=== PATIENT | male | born 1925 | race Caucasian/White ===

== ENCOUNTER 2016-05-18 17:14 | Inpatient (IN) | payer MEDICARE, BC ==
[2016-05-18 18:44] LABS: Basophils # (A) 0.1 k/uL (0-0.2); Basophils % (A) 1 %; CH 33.5; CHCM 34.1; Eosinophils # (A) 0.4 k/uL (0-0.7); Eosinophils % (A) 4 %; HCT 38.9 % (39.0-53.0); HDW 2.77; HGB 13.1 gm/dL (13.0-17.5); Luc % (Auto) 2; Lymphocytes # (A) 1.3 k/uL (1.0-4.8); Lymphocytes % (A) 14 %; MCH 33.2 pg (25.0-35.0); MCHC 33.7 g/dL (31.0-37.0); MCV 98.6 fL (80.0-100.0); Mean Platelet Volume 7.5; Monocytes # (A) 0.4 k/uL (0-1.0); Monocytes % (A) 4 %; Neutrophils # (A) 7.1 k/uL (1.3-7.7); Neutrophils % (A) 75 %; RBC 3.95 m/uL (4.30-5.90); RDW 12.8 % (11.5-15.5); WBC 9.5 k/uL (3.8-10.6); WBC (Perox) 9.99
[2016-05-18 18:52] LABS: Appearance,Urine Turbid (Clear); Bacteria,Urine Many /hpf; Bilirubin,Urine Negative (Negative); Glucose,Urine (UA) Negative (Negative); Ketones,Urine Negative (Negative); Leukocyte Esterase,Urine Large (Negative); Nitrite,Urine Positive (Negative); PH, Urine 6.5 (5.0-8.0); Particle Count 22996; Protein,Urine 1+ (Negative); RBC,Urine >182 /hpf (0-5); Specific Gravity,Urine 1.016 (1.001-1.035); UA Billing (MACRO vs. MICRO) MICRO; Urobilinogen,Urine <2.0 mg/dL (<2.0); WBC,Urine >182 /hpf (0-5)
[2016-05-18 18:54] LABS: ALT 20 U/L (21-72); AST 14 U/L (17-59); Alkaline Phosphatase 88 U/L (38-126); Anion Gap 10 mmol/L; Blood Urea Nitrogen 24 mg/dL (9-20); Calcium 8.7 mg/dL (8.4-10.2); Carbon Dioxide 25 mmol/L (22-30); Chloride 107 mmol/L (98-107); Glucose 149 mg/dL (74-99); Non-African American GFR(MDRD) >60 (>60 ml/min/1.73 sqM); Potassium 3.9 mmol/L (3.5-5.1); Sodium 142 mmol/L (137-145); Total Bilirubin 0.6 mg/dL (0.2-1.3); Total Protein 6.3 g/dL (6.3-8.2)
--- NOTE | 2016-05-18 19:11 | CT ---
EXAMINATION TYPE: CT abdomen pelvis wo con DATE OF EXAM: 05/18/2016 6:57 PM COMPARISON: NONE HISTORY: Patient poor historian CT DLP: 1287 mGycm Automated exposure control for dose reduction was used. TECHNIQUE: Helical acquisition of images was performed from the lung bases through the pelvis. FINDINGS: There are patchy pneumonic airspace infiltrates in the right lower lobe and to a lesser extent the le ft lower lobe. There is no definite pleural effusion. Heart size is normal. There is no pericardial e ffusion. There are 2 1 cm calcified gallstones. Bile ducts are not dilated. There is no evidence of a pancreat ic mass. Spleen appears normal. There is some thickening of the right adrenal gland probably due to h yperplasia. This is also present on the left side. Kidneys have normal size without evidence of hydronephrosis. There is no retroperitoneal adenopathy. Abdominal aorta is atheromatous. There is an umbilical hernia that measures 3 cm and contains omental fat. There is no sign of a bowel obstruction. Bladder is almost empty. There is no pelvic mass. Ther e is no ascites. 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 There are spondylotic change s in the lumbar spine. Abdominal aorta shows atheromatous change. There is no evidence of an aneurysm . There is lumbar spinal stenosis at L2-3 L3-4 L4-5 levels. IMPRESSION: CALCIFIED GALLSTONES. NO DILATED DUCTS. BILATERAL LOWER LOBE PNEUMONIC INFILTRATES AND WORSE ON THE R IGHT SIDE CONSISTENT WITH PNEUMONIA. UMBILICAL HERNIA. MULTILEVEL LUMBAR BONY SPINAL STENOSIS.
[2016-05-18] MEDS ORDERED: CEFEPIME 2 GM in SODIUM CHLORIDE 0.9% 50 ML IVPB STA (19:25)
[2016-05-18] MEDS ORDERED: IV VANCOMYCIN PER PHARMACY 1 EACH MISC MISCELLANE PRN (19:25)
--- NOTE | 2016-05-18 19:25 | ED ---
General Adult HPI - General Chief complaint: Urogenital Stated complaint: Hematuria Time Seen by Provider: 05/18/16 17:24 Source: EMS Mode of arrival: EMS Limitations: physical limitation - History of Present Illness Initial comments: 60-year-old male not on anticoagulants presented for evaluation of hematuria noticed today. He is a resident at [facility] and staff states that they noticed blood in his briefs this morning. Later in the day they noticed that he had gross hematuria when urinating and decided he needed to be evaluated in the ED. The patient's baseline mental status and O 1 but they state today is a good day and he is much more social and usual without agitation. 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 The patient and staff stated this pain is no worse than usual. - Related Data Home Medications Medication Instructions Recorded Confirmed Herreid-3 Fatty Acids/Fish Oil [Fish 1 cap PO BID@0800,199909/06/14 05/18/16 Oil 1,000 mg Softgel] Sertraline [Zoloft] 50 mg PO DAILY@0809/06/14 05/18/16 Spironolactone [Aldactone] 25 mg PO DAILY@0800 09/06/14 05/18/16 ALPRAZolam [Xanax] 0.5 mg PO BID 05/18/16 05/18/16 Betamethasone Dipropionate 1 applic TOPICAL DAILY PRN 05/18/16 05/18/16 [Diprolene 0.05% Lotion] Cholecalciferol [Vitamin D3] 2,000 unit PO BID@08,199905/18/16 05/18/16 Clotrimazole Cream [Lotrimin Cream] 1 applic TOPICAL BID PRN 05/18/16 05/18/16 Docusate [Colace] 100 mg PO DAILY@0800 05/18/16 05/18/16 Folic Acid/Multivit-Min/Lutein 1 tab PO DAILY@0800 05/18/16 05/18/16 [Therapeutic-M Tablet] Menthol/Zinc Oxide [Calmoseptine 1 applic TOPICAL DAILY PRN 05/18/16 05/18/16 Ointment] Naproxen [Naprosyn] 500 mg PO BID@0800,199905/18/16 05/18/16 Nystatin 100,000 Unit/gm Powd 1 applic TOPICAL BID PRN 05/18/16 05/18/16 [Mycostatin Powder] guaiFENesin SYRUP 100MG/5ML 200 mg PO Q8H PRN 05/18/16 05/18/16 [Robitussin] traMADol-ACETAMINOP 37.5-325MG 2 tab PO Q6HR PRN 05/18/16 05/18/16 [Ultracet] Allergies Allergy/AdvReac Type Severity Reaction Status Date / Time No Known Allergies Allergy Verified 05/18/16 17:33 Review of Systems ROS Statement: Those systems with pertinent positive or pertinent negative responses have been documented in the HPI. ROS Other: All systems not noted in ROS Statement are negative. Past Medical History Past Medical History: Atrial Fibrillation, Dementia, Hypertension Additional Past Medical History / Comment(s): bone spurs, GALL STONES, edema, vitamin D deficiency, lumbago, History of Any Multi-Drug Resistant Organisms: None Reported Past Surgical History: No Surgical Hx Reported Past Anesthesia/Blood Transfusion Reactions: No Reported Reaction Past Psychological History: No Psychological Hx Reported Smoking Status: Former smoker Past Drug Use History: None Reported General Exam Limitations: physical limitation Course Vital Signs 05/18/16 17:20 Temperature 96.9 F L Pulse Rate 69 Respiratory 16 Rate Blood Pressure 153/65 O2 Sat by Pulse 97 Oximetry EKG Findings - EKG Comments: EKG Findings:: Normal sinus rhythm with LAFB, ventricular rate 65 bpm, COLLEEN 170, QRS 114, QT/QTC 418/434. Medical Decision Making - Medical Decision Making 89-year-old male presented for evaluation of gross hematuria noticed by staff at [facility]. His baseline mental status exam on times one and faculty state that he is at his normal baseline. Upon presentation the patient appears to be in no distress and vitals are within normal limits. Labs sent and were significant for urinary tract infection with significant hematuria. CT abdomen was also obtained which showed bibasilar pneumonia worse on the right compared to the left. Given his 2 sources of infection patient was started on IV Vanco and cefepime and admission process started. Dr. Bnoilla accepted the admission with request for consult with urology. Admission order placed and bed request submitted. - Lab Data Result diagrams: 05/18/16 18:10 05/18/16 18:10 Lab Results 0305/18/16 05/18/16 Range/Units 18:10 18:10 18:10 WBC 9.5 (3.8-10.6) k/uL RBC 3.95 L (4.30-5.90) m/uL Hgb 13.1 (13.0-17.5) gm/dL Hct 38.9 L (39.0-53.0) % MCV 98.6 (80.0-100.0) fL MCH 33.2 (25.0-35.0) pg MCHC 33.7 (31.0-37.0) g/dL RDW 12.8 (11.5-15.5) % Plt Count 206 (150-450) k/uL Neutrophils % 75 % Lymphocytes % 14 % Monocytes % 4 % Eosinophils % 4 % Basophils % 1 % Neutrophils # 7.1 (1.3-7.7) k/uL Lymphocytes # 1.3 (1.0-4.8) k/uL Monocytes # 0.4 (0-1.0) k/uL Eosinophils # 0.4 (0-0.7) k/uL Basophils # 0.1 (0-0.2) k/uL Sodium 142 (137-145) mmol/L Potassium 3.9 (3.5-5.1) mmol/L Chloride 107 (98-107) mmol/L Carbon Dioxide 25 (22-30) mmol/L Anion Gap 10 mmol/L BUN 24 H (9-20) mg/dL Creatinine 0.99 (0.66-1.25) mg/dL Est GFR (MDRD) Af Amer >60 (>60 ml/min/1.73 sqM) Est GFR (MDRD) Non-Af >60 (>60 ml/min/1.73 sqM) Glucose 149 H (74-99) mg/dL Calcium 8.7 (8.4-10.2) mg/dL Total Bilirubin 0.6 (0.2-1.3) mg/dL AST 14 L (17-59) U/L ALT 20 L (21-72) U/L Alkaline Phosphatase 88 (38-126) U/L Troponin I (0.000-0.034) ng/mL Total Protein 6.3 (6.3-8.2) g/dL Albumin 3.4 L (3.5-5.0) g/dL Lipase 102 (23-300) U/L Urine Color Yellow Urine Appearance Turbid (Clear) Urine pH 6.5 (5.0-8.0) Ur Specific [place] 1.016 (1.001-1.035) Urine Protein 1+ H (Negative) Urine Glucose (UA) Negative (Negative) Urine Ketones Negative (Negative) Urine Blood Large H (Negative) Urine Nitrite Positive (Negative) Urine Bilirubin Negative (Negative) Urine Urobilinogen <2.0 (<2.0) mg/dL Ur Leukocyte Esterase Large H (Negative) Urine RBC >182 H (0-5) /hpf Urine WBC >182 H (0-5) /hpf Urine WBC Clumps Moderate H (None) /hpf Urine Bacteria Many H (None) /hpf 05/18/16 Range/Units 18:10 WBC (3.8-10.6) k/uL RBC (4.30-5.90) m/uL Hgb (13.0-17.5) gm/dL Hct (39.0-53.0) % MCV (80.0-100.0) fL MCH (25.0-35.0) pg MCHC (31.0-37.0) g/dL RDW (11.5-15.5) % Plt Count (150-450) k/uL Neutrophils % % Lymphocytes % % Monocytes % % Eosinophils % % Basophils % % Neutrophils # (1.3-7.7) k/uL Lymphocytes # (1.0-4.8) k/uL Monocytes # (0-1.0) k/uL Eosinophils # (0-0.7) k/uL Basophils # (0-0.2) k/uL Sodium (137-145) mmol/L Potassium (3.5-5.1) mmol/L Chloride (98-107) mmol/L Carbon Dioxide (22-30) mmol/L Anion Gap mmol/L BUN (9-20) mg/dL Creatinine (0.66-1.25) mg/dL Est GFR (MDRD) Af Amer (>60 ml/min/1.73 sqM) Est GFR (MDRD) Non-Af (>60 ml/min/1.73 sqM) Glucose (74-99) mg/dL Calcium (8.4-10.2) mg/dL Total Bilirubin (0.2-1.3) mg/dL AST (17-59) U/L ALT (21-72) U/L Alkaline Phosphatase (38-126) U/L Troponin I <0.012 (0.000-0.034) ng/mL Total Protein (6.3-8.2) g/dL Albumin (3.5-5.0) g/dL Lipase (23-300) U/L Urine Color Urine Appearance (Clear) Urine pH (5.0-8.0) Ur Specific [place] (1.001-1.035) Urine Protein (Negative) Urine Glucose (UA) (Negative) Urine Ketones (Negative) Urine Blood (Negative) Urine Nitrite (Negative) Urine Bilirubin (Negative) Urine Urobilinogen (<2.0) mg/dL Ur Leukocyte Esterase (Negative) Urine RBC (0-5) /hpf Urine WBC (0-5) /hpf Urine WBC Clumps (None) /hpf Urine Bacteria (None) /hpf Disposition Clinical Impression: HCAP (healthcare-associated pneumonia), Urinary tract infection Disposition: ADMITTED IP TO THIS [facility] Decision to Admit Reason: Admit from EC Decision Date: 05/18/16 Decision Time: 19:36
[2016-05-18] MEDS ORDERED: VANCOMYCIN 1,500 MG in SODIUM CHLORIDE 0.9% 250 ML IVPB STA (19:32)
[2016-05-18] MEDS ORDERED: NALOXONE 0.4 MG/ML 1 ML VIAL IV PRN (19:37)
[2016-05-18] MEDS ORDERED: ONDANSETRON 4 MG/2 ML VIAL IVP PRN (19:37)
[2016-05-18] MEDS ORDERED: MORPHINE SULFATE 4 MG/ML SYRINGE IV PRN (19:37)
[2016-05-18] MEDS ORDERED: NYSTATIN 100,000 UNIT/GM POWD 15 GM TOPICAL PRN (19:39)
[2016-05-18 20:44] VITALS: BMI 34.6
[2016-05-18] MEDS: SODIUM CHLORIDE 0.9% 1,000 ML IV SCH (21:21)
[2016-05-18] MEDS: ALPRAZolam 0.5 MG TAB PO SCH (21:28)
[2016-05-19] MEDS: KETOROLAC 30 MG/ML 1 ML VIAL IVP PRN ×2 (04:42→14:16)
[2016-05-19] MEDS: SODIUM CHLORIDE 0.9% 1,000 ML IV SCH ×2 (07:22→17:11)
[2016-05-19] MEDS: SERTRALINE 50 MG TAB PO SCH (08:32)
[2016-05-19] MEDS: SPIRONOLACTONE 25 MG TAB PO SCH (08:32)
[2016-05-19] MEDS: ALPRAZolam 0.5 MG TAB PO SCH ×2 (08:32→21:43)
[2016-05-19 08:41] LABS: Basophils % (A) 1 %; CH 33.2; CHCM 33.5; Eosinophils # (A) 0.5 k/uL (0-0.7); Eosinophils % (A) 5 %; HDW 2.76; Luc # (Auto) 0.17; Luc % (Auto) 2; Lymphocytes # (A) 1.4 k/uL (1.0-4.8); Lymphocytes % (A) 16 %; MCH 32.3 pg (25.0-35.0); MCHC 32.4 g/dL (31.0-37.0); MCV 99.6 fL (80.0-100.0); Mean Platelet Volume 6.6; Monocytes # (A) 0.3 k/uL (0-1.0); Monocytes % (A) 4 %; Neutrophils # (A) 6.1 k/uL (1.3-7.7); Neutrophils % (A) 72 %; RBC 4.02 m/uL (4.30-5.90); RDW 12.9 % (11.5-15.5); WBC 8.4 k/uL (3.8-10.6); WBC (Perox) 9.13
[2016-05-19 09:06] LABS: Chloride 110 mmol/L (98-107); Glucose 82 mg/dL (74-99); Potassium 4.2 mmol/L (3.5-5.1); Total Protein 6.5 g/dL (6.3-8.2)
[2016-05-19 09:07] LABS: ALT 20 U/L (21-72); AST 16 U/L (17-59); Alkaline Phosphatase 86 U/L (38-126); Anion Gap 10 mmol/L; Blood Urea Nitrogen 22 mg/dL (9-20); Calcium 8.9 mg/dL (8.4-10.2); Carbon Dioxide 23 mmol/L (22-30); Non-African American GFR(MDRD) >60 (>60 ml/min/1.73 sqM); Sodium 143 mmol/L (137-145); Total Bilirubin 0.7 mg/dL (0.2-1.3)
[2016-05-19] MEDS ORDERED: VANCOMYCIN 1,500 MG in SODIUM CHLORIDE 0.9% 250 ML IVPB SCH (14:00)
[2016-05-19 20:22] LABS: Appearance,Urine Cloudy (Clear); Bacteria,Urine Rare /hpf; Bilirubin,Urine Negative (Negative); Glucose,Urine (UA) Negative (Negative); Ketones,Urine Negative (Negative); Leukocyte Esterase,Urine Large (Negative); Mucus,Urine Rare /hpf; Nitrite,Urine Negative (Negative); PH, Urine 5.5 (5.0-8.0); Particle Count 11347; Protein,Urine 1+ (Negative); RBC,Urine 129 /hpf (0-5); Specific Gravity,Urine 1.018 (1.001-1.035); UA Billing (MACRO vs. MICRO) MICRO; Urobilinogen,Urine <2.0 mg/dL (<2.0); WBC,Urine 130 /hpf (0-5)
[2016-05-20] MEDS: SODIUM CHLORIDE 0.9% 1,000 ML IV SCH ×3 (04:12→22:39)
[2016-05-20] MEDS ORDERED: VANCOMYCIN 1,750 MG in SODIUM CHLORIDE 0.9% 250 ML IVPB SCH (06:00)
[2016-05-20] MEDS: SERTRALINE 50 MG TAB PO SCH (07:56)
[2016-05-20] MEDS: ALPRAZolam 0.5 MG TAB PO SCH ×2 (07:56→20:36)
[2016-05-20] MEDS: SPIRONOLACTONE 25 MG TAB PO SCH (07:56)
--- NOTE | 2016-05-20 08:36 | HP ---
DATE OF ADMISSION: 05/18/2016 PRESENTING COMPLAINT: Hematuria. HISTORY OF PRESENTING COMPLAINT: This is an 89-year-old patient who is a poor historian because of dementia noticed that the place where he lives, ( ) in his underwear, hence he was sent in. Patient denies any symptoms like because history he is a poor historian. The patient's chronic stable medical conditions include atrial fibrillation, dementia, hypertension, vitamin D deficiency. REVIEW OF SYSTEMS: Constitutional: Tired. HEENT: None. RESPIRATORY: None. CARDIOVASCULAR: No chest pain. GASTROINTESTINAL: None. GENITOURINARY: As above. MUSCULOSKELETAL: Pain in the joints. Dermatological: None. HEMATOLOGIC: None. LYMPHATICS: None. PSYCHIATRY: Very forgetful. NEUROLOGICAL: Chronic weakness of the right side. PAST MEDICAL HISTORY: Atrial fibrillation, dementia, hypertension, and bone spur, gallstones, vitamin D deficiency. PAST SURGICAL HISTORY: None. SOCIAL HISTORY: Patient is a Resident of [facility]. Did smoke in the past. No alcohol. FAMILY HISTORY: Patient cannot remember. HOME MEDICATIONS: 1. Nystatin powder topical b.i.d. p.r.n. 2. Calmoseptine ointment topical daily p.r.n. 3. Diprolene 0.05% one topical daily p.r.n. 4. Robitussin 200 mg q.8 p.r.n. 5. Lotrimin topical b.i.d. p.r.n. 6. Ultracet 2 tablets p.o. q.6 p.r.n. 7. Therapeutic-M 1 tablet p.o. daily. 8. Xanax 0.5 p.o. b.i.d. 9. Colace 100 mg p.o. daily. 10. Vitamin D3, 2000 units p.o. b.i.d. 11. Naproxen 500 mg p.o. b.i.d. 12. Aldactone 25 mg p.o. daily. 13. Zoloft 50 mg p.o. daily. 14. Fish oil 1000 mg 1 capsule p.o. b.i.d. ALLERGIES: None. On examination vital signs on presentation: Temperature 97.9, pulse 82, respirations 18, blood pressure 140/64, pulse ox 95% on room air. GENERAL APPEARANCE: Sitting up, not in distress. EYES: Pupils equal. Conjunctivae pale. HEENT: Oral cavity with dry mucous membrane. NECK: JVD not raised. Mass not palpable. RESPIRATORY: Effort normal. LUNGS: Slightly decreased breath sounds. CARDIOVASCULAR: First and second sounds normal. No edema. ABDOMEN: Soft, nontender. Liver and spleen not palpable. LYMPHATIC: No lymph node palpable in neck or axillae. PSYCHIATRY: Knows her name and knows that she may be in the hospital, but cannot answer more detailed questions. NEUROLOGICAL: Pupils equal. ( ) does move all 4 limbs. Weakness of the right leg is 3/5, right arm power is 4/5. INVESTIGATIONS: White count 8.4, hemoglobin 13, potassium 4.2. UA positive for leukocyte esterase, WBC. ASSESSMENT: 1. Acute hematuria could be from acute severe urinary tract infection at the same time other underlying malignancy and other causes of the bladder should be ruled out. 2. Persistent atrial fibrillation. 3. Alzheimer's dementia, late onset type. 4. Essential hypertension. 5. Vitamin D deficiency. PLAN: Home medications are resumed. Urine culture will be sent off. Urology was consulted. We will put the patient on ceftriaxone and ensure urine cultures are being done. Copy to visiting physician Dr. Leslie.
--- NOTE | 2016-05-20 21:04 | PN ---
DATE OF SERVICE: 05/20/2016 PRESENTING COMPLAINT: Hematuria. INTERVAL HISTORY: This patient presented with hematuria, could be from simply infection, has been on antibiotics. Patient himself is a poor historian. Did eat his meals. Nurse is checking to see if he has any more bleeding. Awaiting input from Neurology. Review of systems attempted. Current medications include IV ceftriaxone. On examination, temperature 97, pulse 56, respiration 20, blood pressure 115/61, pulse ox 94% on room air. GENERAL APPEARANCE: Lying in bed, comfortable. EYES: Pupils equal. Conjunctivae normal. NECK: JVD not raised. Mass not palpable. RESPIRATORY: Lungs have slightly decreased breath sounds. CARDIOVASCULAR: First and second sounds normal. No edema. ABDOMEN: Soft, nontender. Liver and spleen not palpable. PSYCHIATRY: Patient able to answer simple questions. INVESTIGATIONS: Urine cultures pending. ASSESSMENT: 1. Acute hematuria, present at admission, could be from urinary tract infection. If antibiotics clear it, then no need for further workup, but at the same time, malignancy remains in the differential at least. 2. Persistent atrial fibrillation. 3. Alzheimer dementia, late onset type. 4. Essential hypertension. 5. Vitamin D deficiency. PLAN: Patient will be sat up in a chair. Await input from Neurology. Cultures are pending. Continue antibiotics.
[2016-05-21] MEDS: ALPRAZolam 0.5 MG TAB PO SCH ×2 (09:52→20:02)
[2016-05-21] MEDS: SERTRALINE 50 MG TAB PO SCH (09:52)
[2016-05-21] MEDS: SPIRONOLACTONE 25 MG TAB PO SCH (09:52)
[2016-05-21] MEDS: SODIUM CHLORIDE 0.9% 1,000 ML IV SCH ×2 (12:51→16:55)
[2016-05-21 22:50] VITALS: RESP 18
[2016-05-22] MEDS: KETOROLAC 30 MG/ML 1 ML VIAL IVP PRN ×2 (00:27→08:25)
[2016-05-22] MEDS ORDERED: CEFUROXIME 250 MG TAB PO SCH (08:00)
[2016-05-22] MEDS: SERTRALINE 50 MG TAB PO SCH (08:20)
[2016-05-22] MEDS: SPIRONOLACTONE 25 MG TAB PO SCH (08:20)
[2016-05-22 09:20] VITALS: BP 138/75; PULSE 68; TEMP 96.2
--- NOTE | 2016-05-22 09:46 | PN ---
DATE OF SERVICE: 05/21/2016 PRESENTING COMPLAINT: Hematuria. INTERVAL HISTORY: Patient presented with hematuria, could be infection, antibiotics, tolerating a diet, comfortable. Patient is at a baseline of Mehreen lift at the place he lives. Review of systems done for constitutional, cardiovascular, GI, pulmonary; relevant findings as above. Current medications are reviewed that include IV ceftriaxone. On examination, temperature 97.1, pulse 71, respirations 21, blood pressure 129/72, pulse ox 92% on room air. GENERAL APPEARANCE: Lying in bed, comfortable. EYES: Pupils equal. Conjunctivae normal. NECK: JVD not raised. Mass not palpable. Respiratory effort normal. LUNGS: Decreased breath sounds. CARDIOVASCULAR: First and second sounds normal. No edema. ABDOMEN: Soft, nontender. Liver and spleen not palpable. PSYCHIATRY: Answering simple questions. INVESTIGATIONS: Urine cultures have come back negative. Please note that this was on antibiotics. ASSESSMENT: 1. Acute hematuria present at admission, likely from urinary tract infection, doing well. 2. Persistent atrial fibrillation. 3. Alzheimer's dementia, late onset type. 4. Essential hypertension. 5. Vitamin D deficiency. 6. Medical debility, patient uses a Mehreen lift as a baseline. PLAN: Will switch over patient to oral antibiotics and discharge patient back to [facility] tomorrow.
[2016-05-22] MEDS: ALPRAZolam 0.5 MG TAB PO SCH (10:05)
--- NOTE | 2016-05-24 07:23 | DS ---
DATE OF ADMISSION: 05/18/2016 DATE OF DISCHARGE: 05/22/2016 FINAL DIAGNOSES: 1. Acute hematuria, likely from the urinary tract infection. 2. Persistent atrial fibrillation. 3. Alzheimer's dementia, late onset type. 4. Essential hypertension. 5. Vitamin D deficiency. 6. Medical debility. Patient uses a Mehreen lift at the baseline. HOSPITAL COURSE: This patient presented with hematuria. Given antibiotics to which he responded well. Urine cultures remain negative. Hematuria completely resolved. CONSULTATION: Urology. On examination, lungs are clear. CARDIOVASCULAR: First and second sounds normal. DISCHARGE MEDICATIONS: 1. Fish oil 1000 mg p.o. b.i.d. 2. Zoloft 50 mg p.o. daily. 3. Aldactone 25 mg p.o. daily. 4. Xanax 0.5 p.o. daily. 5. Diprolene 0.05% lotion topical daily p.r.n. 6. Vitamin D3, 2000 units p.o. b.i.d. 7. Lotrimin cream topical b.i.d. p.r.n. 8. Therapeutic M 1 tablet p.o. daily. 9. Calmoseptine topical daily p.r.n. 10. Mycostatin topical b.i.d. p.r.n. 11. Ultracet 37.5/325 two tablets p.o. q.6 p.r.n. 12. Ceftin 250 mg q.12, ten tablets. 13. Naproxen 250 mg p.o. b.i.d., 14 tablets. DISPOSITION: To [facility] To follow up with Dr. Leslie in one week.
== END 2016-05-22 15:27 | disposition home or self-care (01) | DRG 690 ==
LOC: EEVIPCON 17:14 → EC 17:14 → 4MS4W 19:37
PROVIDERS: ADMIT Hospitalist; ATTEND Hospitalist
DX: N39.0 Urinary tract infection, site not specified (principal); I48.1 Persistent atrial fibrillation; G30.1 Alzheimer's disease with late onset; F02.80 Dementia in other diseases classified elsewhere, unspecified severity, without behavioral disturbance, psychotic disturbance, mood disturbance, and anxiety; R31.0 Gross hematuria; E55.9 Vitamin D deficiency, unspecified; I10 Essential (primary) hypertension; M77.32 Calcaneal spur, left foot; M77.31 Calcaneal spur, right foot; G89.29 Other chronic pain; Z87.891 Personal history of nicotine dependence; Z79.1 Long term (current) use of non-steroidal anti-inflammatories (NSAID); Z79.899 Other long term (current) drug therapy
CPT/HCPCS: 36415; 74176; 80053; 81001; 83690; 83735; 84100; 84484; 85025; 87086; 93005; 96365; 99285

== ENCOUNTER 2016-06-06 15:39 | Inpatient (IN) | payer MEDICARE, BC ==
[2016-06-06] MEDS ORDERED: KETOROLAC 60 MG/2 ML VIAL IVP STA (15:51)
[2016-06-06] MEDS ORDERED: ACETAMINOPHEN TAB 500 MG TAB PO STA (15:52)
--- NOTE | 2016-06-06 15:55 | ED ---
General Adult HPI - General Source: RN notes reviewed <Gary Ramirez - Last Filed: 06/06/16 16:44> <Julián Doan - Last Filed: 06/06/16 18:53> - General Stated complaint: pneumonia Time Seen by Provider: 06/06/16 15:39 - History of Present Illness Initial comments: This is an 89-year-old male who presents emergency Department with a recent history of pneumonia. According to staff at the facility they called because he more difficult to breathing and coughing quite a bit. Patient denies any difficulty breathing but he also is significantly demented. Patient does not know the date or the month or the time of the year. Patient seems to believe he is here because he has a bone spur on the back of his left heel and he believes he is here to have that removed. No further history is available this time because the patient is not accurate and giving history and EMS only knows that the staff called them because he recently was diagnosed with pneumonia and his breathing is gotten no better. Patient denies any pain aside from the left heel where he complains of a bone spur. Patient denies headache patient denies any chest pain or palpitations patient denies abdominal pain patient denies nausea vomiting diarrhea. (Gary Ramirez) - Related Data Home Medications Medication Instructions Recorded Confirmed Wayne-3 Fatty Acids/Fish Oil [Fish 1 cap PO BID@08,199909/06/14 06/06/16 Oil 1,000 mg Softgel] Sertraline [Zoloft] 50 mg PO DAILY@79909/06/14 06/06/16 Spironolactone [Aldactone] 25 mg PO DAILY@79909/06/14 06/06/16 ALPRAZolam [Xanax] 0.5 mg PO BID PRN 05/18/16 06/06/16 Cholecalciferol [Vitamin D3] 2,000 unit PO BID@08,199905/18/16 06/06/16 Clotrimazole Cream [Lotrimin Cream] 1 applic TOPICAL BID PRN 05/18/16 06/06/16 Menthol/Zinc Oxide [Calmoseptine 1 applic TOPICAL DAILY PRN 05/18/16 06/06/16 Ointment] Nystatin 100,000 Unit/gm Powd 1 applic TOPICAL BID PRN 05/18/16 06/06/16 [Mycostatin Powder] traMADol-ACETAMINOP 37.5-325MG 2 tab PO Q6HR PRN 05/18/16 06/06/16 [Ultracet] Betamethasone Dipropionate 1 applic TOPICAL BID PRN 06/06/16 06/06/16 [Diprolene AF 0.05% Cream] Naproxen [Naprosyn] 500 mg PO Q12HR 06/06/16 06/06/16 Q Tussin 100/5ml 5 ml PO DIRECTED PRN 06/06/16 06/06/16 Allergies Allergy/AdvReac Type Severity Reaction Status Date / Time No Known Allergies Allergy Verified 06/06/16 16:06 Review of Systems ROS Other: All systems not noted in ROS Statement are negative. <Gary Ramirez - Last Filed: 06/06/16 16:44> ROS Other: All systems not noted in ROS Statement are negative. <Julián Doan - Last Filed: 06/06/16 18:53> ROS Statement: Those systems with pertinent positive or pertinent negative responses have been documented in the HPI. Past Medical History Past Medical History: Atrial Fibrillation, Dementia, Hypertension Additional Past Medical History / Comment(s): bone spurs, GALL STONES, edema, vitamin D deficiency, lumbago, History of Any Multi-Drug Resistant Organisms: None Reported Past Surgical History: No Surgical Hx Reported Past Anesthesia/Blood Transfusion Reactions: No Reported Reaction Past Psychological History: No Psychological Hx Reported Smoking Status: Former smoker Past Drug Use History: None Reported <Gary Ramirez - Last Filed: 06/06/16 16:44> General Exam <Gary Ramirez - Last Filed: 06/06/16 16:44> <Julián Doan - Last Filed: 06/06/16 18:53> - General Exam Comments Initial Comments: GENERAL: Patient is well-developed and well-nourished. Patient is nontoxic and well- hydrated and is in no acute distress. ENT: Neck is soft and supple. No significant lymphadenopathy is noted. Oropharynx is clear. Moist mucous membranes. Neck has full range of motion without eliciting any pain. EYES: The sclera were anicteric and conjunctiva were pink and moist. Extraocular movements were intact and pupils were equal round and reactive to light. Eyelids were unremarkable. PULMONARY: Unlabored respirations. Good breath sounds bilaterally. Patient has crackles bilaterally more on the left than the right. CARDIOVASCULAR: There is a regular rate and rhythm without any murmurs gallops or rubs. ABDOMEN: Soft and nontender with normal bowel sounds. No palpable organomegaly was noted. There is no palpable pulsatile mass. SKIN: Skin is clear with no lesions or rashes and otherwise unremarkable. NEUROLOGIC: Patient is alert and oriented 2. Cranial nerves II through XII are grossly intact. Motor and sensory are also intact. Normal speech, volume and content. Symmetrical smile. MUSCULOSKELETAL: Normal extremities with adequate strength and full range of motion. No lower extremity swelling or edema. No calf tenderness. LYMPHATICS: No significant lymphadenopathy is noted (Gary Ramirez) Course <Gary Ramirez - Last Filed: 06/06/16 16:44> <Julián Doan - Last Filed: 06/06/16 18:53> Vital Signs 06/06/16 06/06/16 06/06/16 15:49 16:11 16:41 Temperature 100.3 F H Pulse Rate 94 88 86 Respiratory 22 Rate Blood Pressure 151/65 137/68 136/68 O2 Sat by Pulse 91 L 93 L 95 Oximetry 06/06/16 06/06/16 06/06/16 17:00 18:00 18:47 Temperature 98.3 F Pulse Rate 84 97 97 Respiratory 18 20 20 Rate Blood Pressure 151/67 129/81 137/65 O2 Sat by Pulse 93 L 93 L 93 L Oximetry - Reevaluation(s) Reevaluation #1: 06/06/16 18:52 The patient was endorsed to me by Dr. Ramirez at her shift change. Patient will be admitted he does demonstrate pneumonia with a fever and dyspnea. (Julián Doan) Medical Decision Making - Lab Data Result diagrams: 06/06/16 16:00 <Gary Ramirez - Last Filed: 06/06/16 16:44> - Lab Data Result diagrams: 06/06/16 16:00 06/06/16 16:00 - Radiology Data Radiology results: report reviewed (I did review the x-ray report is evidence of right lower lobe infiltrate is worsening.), image reviewed <Julián Doan - Last Filed: 06/06/16 18:53> - Medical Decision Making EKG shows normal sinus rhythm at 90 bpm IA interval 266 QRS is 102 QT interval 346 QTC is 423. Patient's EKG shows no ST segment elevation or depression or T- wave abnormality she noted. Dr. Franki appiah taking over the care of this patient at 5 PM (Gary Ramirez) - Lab Data Lab Results 06/06/16 06/06/16 06/06/16 Range/Units 16:00 16:00 16:00 WBC 17.1 H (3.8-10.6) k/uL RBC 4.10 L (4.30-5.90) m/uL Hgb 13.7 (13.0-17.5) gm/dL Hct 41.0 (39.0-53.0) % MCV 100.0 (80.0-100.0) fL MCH 33.4 (25.0-35.0) pg MCHC 33.4 (31.0-37.0) g/dL RDW 13.3 (11.5-15.5) % Plt Count 217 (150-450) k/uL Neutrophils % 86 % Lymphocytes % 8 % Monocytes % 3 % Eosinophils % 2 % Basophils % 0 % Neutrophils # 14.7 H (1.3-7.7) k/uL Lymphocytes # 1.3 (1.0-4.8) k/uL Monocytes # 0.5 (0-1.0) k/uL Eosinophils # 0.4 (0-0.7) k/uL Basophils # 0.1 (0-0.2) k/uL PT (9.0-12.0) sec INR (<1.1) APTT (22.0-30.0) sec Sodium (137-145) mmol/L Potassium (3.5-5.1) mmol/L Chloride (98-107) mmol/L Carbon Dioxide (22-30) mmol/L Anion Gap mmol/L BUN (9-20) mg/dL Creatinine (0.66-1.25) mg/dL Est GFR (MDRD) Af Amer (>60 ml/min/1.73 sqM) Est GFR (MDRD) Non-Af (>60 ml/min/1.73 sqM) Glucose (74-99) mg/dL Plasma Lactic Acid Carlton 1.5 (0.7-2.0) mmol/L Calcium (8.4-10.2) mg/dL Magnesium (1.6-2.3) mg/dL Total Bilirubin (0.2-1.3) mg/dL AST (17-59) U/L ALT (21-72) U/L Alkaline Phosphatase (38-126) U/L Total Creatine Kinase 61 (55-170) U/L CK-MB (CK-2) 0.3 (0.0-2.4) ng/mL CK-MB (CK-2) Rel Index 0.5 Troponin I <0.012 (0.000-0.034) ng/mL NT-Pro-B Natriuret Pep pg/mL Total Protein (6.3-8.2) g/dL Albumin (3.5-5.0) g/dL 06/06/16 06/06/16 06/06/16 Range/Units 16:00 16:00 16:00 WBC (3.8-10.6) k/uL RBC (4.30-5.90) m/uL Hgb (13.0-17.5) gm/dL Hct (39.0-53.0) % MCV (80.0-100.0) fL MCH (25.0-35.0) pg MCHC (31.0-37.0) g/dL RDW (11.5-15.5) % Plt Count (150-450) k/uL Neutrophils % % Lymphocytes % % Monocytes % % Eosinophils % % Basophils % % Neutrophils # (1.3-7.7) k/uL Lymphocytes # (1.0-4.8) k/uL Monocytes # (0-1.0) k/uL Eosinophils # (0-0.7) k/uL Basophils # (0-0.2) k/uL PT 10.8 (9.0-12.0) sec INR 1.1 (<1.1) APTT 24.2 (22.0-30.0) sec Sodium 142 (137-145) mmol/L Potassium 4.0 (3.5-5.1) mmol/L Chloride 107 (98-107) mmol/L Carbon Dioxide 23 (22-30) mmol/L Anion Gap 12 mmol/L BUN 29 H (9-20) mg/dL Creatinine 1.08 (0.66-1.25) mg/dL Est GFR (MDRD) Af Amer >60 (>60 ml/min/1.73 sqM) Est GFR (MDRD) Non-Af >60 (>60 ml/min/1.73 sqM) Glucose 102 H (74-99) mg/dL Plasma Lactic Acid Carlton (0.7-2.0) mmol/L Calcium 8.9 (8.4-10.2) mg/dL Magnesium 1.8 (1.6-2.3) mg/dL Total Bilirubin 1.0 (0.2-1.3) mg/dL AST 28 (17-59) U/L ALT 25 (21-72) U/L Alkaline Phosphatase 87 (38-126) U/L Total Creatine Kinase (55-170) U/L CK-MB (CK-2) (0.0-2.4) ng/mL CK-MB (CK-2) Rel Index Troponin I (0.000-0.034) ng/mL NT-Pro-B Natriuret Pep 270 pg/mL Total Protein 7.1 (6.3-8.2) g/dL Albumin 3.8 (3.5-5.0) g/dL Disposition <Gary Ramirez - Last Filed: 06/06/16 16:44> <Julián Doan - Last Filed: 06/06/16 18:53> Clinical Impression: Right lower lobe pneumonia, Febrile illness, acute, Leukocytosis, Dyspnea Disposition: ADMITTED IP TO THIS HOSP Condition: Stable
[2016-06-06 16:28] LABS: Basophils # (A) 0.1 k/uL (0-0.2); Basophils % (A) 0 %; CHCM 33.2; Eosinophils # (A) 0.4 k/uL (0-0.7); Eosinophils % (A) 2 %; HDW 2.73; HGB 13.7 gm/dL (13.0-17.5); Luc # (Auto) 0.17; Luc % (Auto) 1; Lymphocytes # (A) 1.3 k/uL (1.0-4.8); Lymphocytes % (A) 8 %; MCH 33.4 pg (25.0-35.0); MCHC 33.4 g/dL (31.0-37.0); Mean Platelet Volume 6.8; Monocytes # (A) 0.5 k/uL (0-1.0); Monocytes % (A) 3 %; Neutrophils # (A) 14.7 k/uL (1.3-7.7); Neutrophils % (A) 86 %; RDW 13.3 % (11.5-15.5); WBC 17.1 k/uL (3.8-10.6); WBC (Perox) 17.18
[2016-06-06 16:40] LABS: INR 1.1 (<1.1); Partial Thromboplastin Time 24.2 sec (22.0-30.0); Prothrombin Time 10.8 sec (9.0-12.0)
[2016-06-06 16:41] LABS: ALT 25 U/L (21-72); AST 28 U/L (17-59); Alkaline Phosphatase 87 U/L (38-126); Anion Gap 12 mmol/L; Blood Urea Nitrogen 29 mg/dL (9-20); Calcium 8.9 mg/dL (8.4-10.2); Carbon Dioxide 23 mmol/L (22-30); Chloride 107 mmol/L (98-107); Glucose 102 mg/dL (74-99); Magnesium 1.8 mg/dL (1.6-2.3); Non-African American GFR(MDRD) >60 (>60 ml/min/1.73 sqM); Sodium 142 mmol/L (137-145); Total Protein 7.1 g/dL (6.3-8.2)
--- NOTE | 2016-06-06 16:48 | XR ---
EXAMINATION TYPE: XR chest 2V DATE OF EXAM: 06/06/2016 4:43 PM COMPARISON: 09/06/2014 HISTORY: Shortness of breath TECHNIQUE: Frontal and lateral views of the chest are obtained. FINDINGS: Scattered senescent parenchymal changes noted. Hyperinflation compatible with COPD. Mild increased density right lung base could reflect developing infiltrate. Correlate clinically. Heart size is stable. Mediastinal structures are stable and grossly unremarkable. No evidence for hilar prominence. Degenerative changes dorsal spine. IMPRESSION: 1. Mild increased density right lung base could reflect developing infiltrate. Correlate clinically.
[2016-06-06 16:51] LABS: Creatine Kinase 61 U/L (55-170)
[2016-06-06 17:04] LABS: Creatine Kinase MB 0.3 ng/mL (0.0-2.4); Troponin I <0.012 ng/mL (0.000-0.034)
[2016-06-06] MEDS ORDERED: PIPERACILLIN-TAZOBACTAM 3.375 GM in DEXTROSE/WATER 1 50ML.BAG IVPB STA (17:52)
[2016-06-06] MEDS ORDERED: LEVOFLOXACIN 750MG-D5W PMX 750 MG in DEXTROSE/WATER 1 150ML.BAG IVPB STA (18:54)
[2016-06-06] MEDS ORDERED: PNEUMONIA PROTOCOL UTILIZED 1 EACH MISC PO PRN (18:54)
[2016-06-06] MEDS ORDERED: traMADol-ACETAMINOP 37.5-325MG 1 EACH TAB PO PRN (18:56)
[2016-06-06] MEDS ORDERED: ALPRAZolam 0.5 MG TAB PO PRN (18:56)
[2016-06-06] MEDS ORDERED: NON-FORMULARY DRUG (Omega-3 Fatty Acids/Fish Oil [Fish Oil 1,000 Mg Softgel] 1 CAP) PO SCH (20:00)
[2016-06-06 20:24] LABS: Appearance,Urine Clear (Clear); Bilirubin,Urine Negative (Negative); Glucose,Urine (UA) Negative (Negative); Ketones,Urine Trace (Negative); Leukocyte Esterase,Urine Negative (Negative); Nitrite,Urine Negative (Negative); PH, Urine 5.5 (5.0-8.0); Protein,Urine Trace (Negative); Specific Gravity,Urine 1.021 (1.001-1.035); UA Billing (MACRO vs. MICRO) CHEM
[2016-06-06] MEDS: NAPROXEN 250 MG TAB PO SCH (20:53)
[2016-06-06] MEDS: CHOLECALCIFEROL 1,000 UNIT TAB PO SCH (20:54)
[2016-06-06] MEDS: IPRATROPIUM-ALBUTEROL 3 ML NEB INHALATION SCH ×2 (21:25→23:04)
[2016-06-06] MEDS: SODIUM CHLORIDE 0.9% 1,000 ML IV SCH (22:06)
[2016-06-06] MEDS: PIPERACILLIN-TAZOBACTAM 3.375 GM in DEXTROSE/WATER 1 50ML.BAG IVPB SCH (23:15)
[2016-06-07] MEDS: IPRATROPIUM-ALBUTEROL 3 ML NEB INHALATION SCH ×6 (03:58→21:09)
[2016-06-07 07:26] LABS: Glucose,Whole Blood 96 mg/dL (75-99)
[2016-06-07] MEDS ORDERED: SPIRONOLACTONE 25 MG TAB PO SCH (08:00)
[2016-06-07] MEDS: PIPERACILLIN-TAZOBACTAM 3.375 GM in DEXTROSE/WATER 1 50ML.BAG IVPB SCH ×2 (08:56→16:09)
[2016-06-07] MEDS: CHOLECALCIFEROL 1,000 UNIT TAB PO SCH ×2 (08:56→20:36)
[2016-06-07] MEDS: SERTRALINE 50 MG TAB PO SCH (08:56)
[2016-06-07] MEDS: NAPROXEN 250 MG TAB PO SCH ×2 (08:57→20:37)
[2016-06-07] MEDS: SODIUM CHLORIDE 0.9% 1,000 ML IV SCH ×2 (09:05→16:10)
--- NOTE | 2016-06-07 09:42 | XR ---
EXAMINATION TYPE: XR chest 2V DATE OF EXAM: 06/07/2016 9:27 AM COMPARISON: Chest x-ray from yesterday. HISTORY: Shortness of breath, cough, and congestion. TECHNIQUE: Frontal and lateral views of the chest are obtained. FINDINGS: Exam is suboptimal secondary to patient's body habitus especially lateral view. There is ch ronic parenchymal change bilaterally most prominent in the bases with fibrosis and/or atelectasis. No new suspicious focal airspace opacity, pleural effusion, or pneumothorax is seen. Improved aeration right lung base is noted. There are large bridging osteophytes in the visualized spine. Heart size is stable and mildly enlarged. IMPRESSION: Chronic parenchymal changes without suspicious acute pulmonary process currently.
[2016-06-07] MEDS ORDERED: CLOTRIMAZOLE 1% CREAM 15 GM TUBE TOPICAL PRN (10:17)
[2016-06-07] MEDS ORDERED: NYSTATIN 100,000 UNIT/GM POWD 15 GM TOPICAL PRN (10:17)
[2016-06-07] MEDS: AZITHROMYCIN 500 MG TAB PO SCH (12:16)
--- NOTE | 2016-06-07 12:59 | HP ---
DATE OF ADMISSION: The patient is an 89-year-old gentleman who came in with some nonspecific symptoms of shortness of breath, oxygen saturations going down and patient is a poor historian. Patient is alert and oriented times around 2 to 3, which appears to be his baseline. The patient apparently does have history of dementia, lives at a facility. Patient was sent in here from [place], which is like an assisted living facility. Patient apparently was found to have infiltrate in the right lower lung case and patient has been coughing apparently. Patient was diagnosed with pneumonia and he is admitted with Zosyn and levofloxacin and discontinued those medications and patient was started on Rocephin and azithromycin. Patient is not a snf facility resident, although he is a resident of [facility] and was not recently admitted in the last 6 months for any pneumonia or any other issues. The patient does not ( ) pneumonia. Patient is a poor historian. His only complaint is a bony spur in the left heel, which is bothering him. Patient does have fever. Patient did have fever and leukocytosis. He is coughing, but unable to bring up anything. Sputum cultures and blood cultures were ordered. REVIEW OF SYSTEMS: All of the review of systems are negative except those mentioned above. Home medications include: 1. Igo fatty acids. 2. Sertraline. 3. Spironolactone. 4. Alprazolam. 5. Cholecalciferol. 6. Clotrimazole. 7. Nystatin. 8. Tramadol 9. Betamethasone. 10. Naproxen. Past medical history is significant for atrial fibrillation, not on anticoagulation at this point of time, probably because of his dementia and may be a fall risk. Patient is quite weak with mostly bedbound and nonambulatory with muscle atrophy in both leg. Hypertension. Patient does have history of bone spurs in the past and chronic low back pain. SOCIAL HISTORY: Former smoker. Denied any alcohol abuse or any drug abuse. FAMILY HISTORY: Mom had a tumor, this is as per the documentation; otherwise, we are unable to get any kind of history at this point of time from the patient. PHYSICAL EXAMINATION: Temperature 97.6, pulse of 70, respiratory rate of 16, blood pressure 100/57, saturating at 92% on 2 L of O2 nasal cannula. The patient is ( ) oxygen at home. GENERAL: The patient is alert and oriented x3, not in any acute distress. Well developed, well nourished. HEENT: Pupils are round and equally reacting to light. EOMI. No scleral icterus. No conjunctival pallor. Normocephalic, atraumatic. No pharyngeal erythema. No thyromegaly. CARDIOVASCULAR: S1 and S2 present. No murmurs, rubs, or gallops. LUNG EXAMINATION: Crackles on the right lower lung base was appreciated and I did not appreciate any clear-cut bronchophony or egophony. ABDOMEN: Soft, nontender, nondistended, normoactive bowel sounds. No palpable organomegaly. MUSCULOSKELETAL: No joint swelling or deformity. EXTREMITIES: No cyanosis, clubbing, or pedal edema. NEUROLOGICAL: Gross neurological examination did not reveal any focal deficits. SKIN: No rashes. Patient is ( ) of normal saline, which will be continued and I will repeat electrolytes and CBC tomorrow. Chest x-ray findings as mentioned above, right middle or lower lobe infiltrate. ASSESSMENT AND PLAN: 1. Sepsis secondary to possible right lower lobe pneumonia. Patient will be started on Rocephin and azithromycin. I will obtain sputum cultures and blood cultures. 2. History of atrial fibrillation, rate controlled heart rate at this point of time. 3. Dementia, supportive care, appears to be moderate to severe. 4. Hypertension. Avoid benzodiazepines at this point of time. Xanax will be discontinued. 5. Patient does have a little bit of renal dysfunction, prerenal azotemia from Aldactone and patients like him with dementia are known to have poor oral intake Because of that reason, Aldactone will be discontinued. I do not see in the history that patient has congestive heart failure and see a reason Aldactone at this time.
[2016-06-07 14:19] VITALS: BMI 32.5
[2016-06-07] MEDS: HEPARIN SODIUM,PORCINE 5,000 UNIT/ML 1 ML VIAL SQ SCH (16:39)
[2016-06-07] MEDS ORDERED: LEVOFLOXACIN 750 MG TAB PO SCH (19:00)
[2016-06-08] MEDS: HEPARIN SODIUM,PORCINE 5,000 UNIT/ML 1 ML VIAL SQ SCH ×2 (00:10→08:37)
[2016-06-08] MEDS: PIPERACILLIN-TAZOBACTAM 3.375 GM in DEXTROSE/WATER 1 50ML.BAG IVPB SCH ×2 (00:10→08:37)
[2016-06-08] MEDS: IPRATROPIUM-ALBUTEROL 3 ML NEB INHALATION SCH ×3 (01:10→09:22)
[2016-06-08] MEDS: SODIUM CHLORIDE 0.9% 1,000 ML IV SCH (04:15)
[2016-06-08 07:35] LABS: CH 32.9; CHCM 32.3; HCT 34.6 % (39.0-53.0); HDW 2.73; HGB 11.1 gm/dL (13.0-17.5); MCH 32.9 pg (25.0-35.0); MCHC 32.1 g/dL (31.0-37.0); MCV 102.4 fL (80.0-100.0); Macrocytosis Slight; Mean Platelet Volume 7.3; RBC 3.38 m/uL (4.30-5.90); RDW 13.4 % (11.5-15.5); WBC 9.9 k/uL (3.8-10.6)
[2016-06-08 07:42] LABS: Anion Gap 9 mmol/L; Blood Urea Nitrogen 25 mg/dL (9-20); Calcium 8.5 mg/dL (8.4-10.2); Carbon Dioxide 25 mmol/L (22-30); Chloride 109 mmol/L (98-107); Glucose 83 mg/dL (74-99); Non-African American GFR(MDRD) >60 (>60 ml/min/1.73 sqM); Potassium 4.2 mmol/L (3.5-5.1); Sodium 143 mmol/L (137-145)
[2016-06-08] MEDS: NAPROXEN 250 MG TAB PO SCH (08:37)
[2016-06-08] MEDS: CHOLECALCIFEROL 1,000 UNIT TAB PO SCH (08:38)
[2016-06-08] MEDS: SERTRALINE 50 MG TAB PO SCH (08:38)
[2016-06-08] MEDS: AZITHROMYCIN 500 MG TAB PO SCH (08:38)
[2016-06-08 09:13] VITALS: BP 130/63; RESP 18; TEMP 97.8
[2016-06-08 09:35] VITALS: PULSE 92
--- NOTE | 2016-06-09 07:35 | DS ---
DATE OF ADMISSION: 06/06/2016 DATE OF DISCHARGE: 06/08/2016 89-year-old admitted with sepsis secondary to pneumonia and patient has significant improvement in sepsis and the patient's leukocytosis resolved. I do not have any sputum cultures or blood culture sensitivities available at this point of time. Patient will be empirically discharged on Ceftin and azithromycin today. Patient was seen and examined on the day of discharge. Mental status although down, alert and oriented x2, which is his baseline. Vitals are stable. PHYSICAL EXAMINATION: GENERAL: The patient is alert and oriented x2, not in any acute distress. Well developed, well nourished. HEENT: Pupils are round and equally reacting to light. EOMI. No scleral icterus. No conjunctival pallor. Normocephalic, atraumatic. No pharyngeal erythema. No thyromegaly. CARDIOVASCULAR: S1 and S2 present. No murmurs, rubs, or gallops. PULMONARY: Chest is clear to auscultation, no wheezing or crackles. ABDOMEN: Soft, nontender, nondistended, normoactive bowel sounds. No palpable organomegaly. MUSCULOSKELETAL: unchanged compared to yesterday. EXTREMITIES: No cyanosis, clubbing, or pedal edema. NEUROLOGICAL: Gross neurological examination did not reveal any focal deficits. SKIN: No rashes. ASSESSMENT AND PLAN: 1. Sepsis secondary to right lower lobe pneumonia. 2. Atrial fibrillation, rate controlled at this point of time. 3. Dementia. 4. Hypertension. 5. 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 6. Morbid obesity. 7. Spurs causing some chronic musculoskeletal problems. Patient evaluated by PT and OT and patient will go back to [facility] where he is from with [facility]. Activity as per the facility. Cardiac diet. I spent greater than 35 minutes in total discharge process.
== END 2016-06-08 12:20 | disposition home health service (06) | DRG 871 ==
LOC: EC 15:39 → 5MS5E 18:54
PROVIDERS: ADMIT Internal Medicine; ATTEND Internal Medicine
DX: A41.9 Sepsis, unspecified organism (principal); J18.9 Pneumonia, unspecified organism; F03.90 Unspecified dementia, unspecified severity, without behavioral disturbance, psychotic disturbance, mood disturbance, and anxiety; I48.91 Unspecified atrial fibrillation; N18.3 Chronic kidney disease, stage 3 (moderate); E66.01 Morbid (severe) obesity due to excess calories; I12.9 Hypertensive chronic kidney disease with stage 1 through stage 4 chronic kidney disease, or unspecified chronic kidney disease; M77.52 Other enthesopathy of left foot and ankle; E55.9 Vitamin D deficiency, unspecified; G89.29 Other chronic pain; M54.5 Low back pain; T50.0X5A Adverse effect of mineralocorticoids and their antagonists, initial encounter; Z79.899 Other long term (current) drug therapy; Z87.01 Personal history of pneumonia (recurrent); Z87.891 Personal history of nicotine dependence; Z74.01 Bed confinement status; Y92.009 Unspecified place in unspecified non-institutional (private) residence as the place of occurrence of the external cause
CPT/HCPCS: 36415; 71020; 80048; 80053; 81003; 82550; 82553; 83605; 83735; 83880; 84484; 85025; 85027; 85610; 85730; 87040; 93005; 94640; 94760; 96365; 96375; 96376; 99285